=== PATIENT | female | born 1985 | race African-American/Black ===

== ENCOUNTER 2017-07-27 21:29 | Emergency (ER) | payer OTHER ==
[2017-07-27 21:39] VITALS: BP 126/84; PULSE 75; TEMP 98.3; BMI 35.4
--- NOTE | 2017-07-27 22:49 | PDOC ---
History of Present Illness - General Chief Complaint: Chest Pain Stated Complaint: CHEST PAIN Time Seen by Provider: 07/27/17 22:49 Past History - Past Medical History Allergies/Adverse Reactions: Allergies Allergy/AdvReac Type Severity Reaction Status Date / Time No Known Allergies Allergy Verified 07/27/17 21:35 COPD: No - Suicide/Smoking/Psychosocial Hx Smoking History: Never smoked Have you smoked in the past 12 months: No Information on smoking cessation initiated: No Hx Alcohol Use: No Drug/Substance Use Hx: No *Physical Exam - Vital Signs Last Vital Signs Temp Pulse Resp BP Pulse Ox 98.3 F 75 20 126/84 98 07/27/17 21:37 07/27/17 21:37 07/27/17 21:37 07/27/17 21:37 07/27/17 21:37 *DC/Admit/Observation/Transfer - Referrals Referrals: Nghia Melendez MD [Primary Care Provider] - - Patient Instructions - Post Discharge Activity
--- NOTE | 2017-07-28 00:16 | PDOC ---
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 The patient states she has been experiencing a dull, intermittent chest pain with associated dry cough at night for the past few days. She states the chest pain was localized to her left anterior chest until today. She reports the pain is exacerbated with coughing. The patient reports developing a pain to her left posterior shoulder, as she points to the area just over her trapezius region, which radiates into her anterior left chest. She states the pain came on suddenly and was sharp in nature. 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 She denies taking any medication for her pain. She denies cough today. The patient denies shortness of breath, headache and dizziness. The patient denies fever, chills, nausea, vomit, diarrhea and constipation. The patient denies dysuria, frequency, urgency and hematuria. Allergies: seasonal, NKDA Past surgical history: gastric sleeve (2 years ago) Social history: denies toxic habits PCP - Dr. Lizbet West ([place]) (Kavya Mendoza) Past History - Past Medical History COPD: No - Suicide/Smoking/Psychosocial Hx Smoking History: Never smoked Have you smoked in the past 12 months: No Information on smoking cessation initiated: No Hx Alcohol Use: No Drug/Substance Use Hx: No <Susana Arriola - Last Filed: 07/28/17 01:25> <Kavya Mendoza - Last Filed: 07/28/17 01:29> - Past Medical History Allergies/Adverse Reactions: Allergies Allergy/AdvReac Type Severity Reaction Status Date / Time No Known Allergies Allergy Verified 07/27/17 21:35 Home Medications: Ambulatory Orders Cyclobenzaprine HCl [Flexeril 10 mg] 10 mg PO BID PRN #6 tablet 07/28/17 Ibuprofen [Motrin -] 600 mg PO TID PRN #12 tablet 07/28/17 Review of Systems <FlakoSusanachrissie Trimble - Last Filed: 07/28/17 01:25> - Review of Systems Able to Perform ROS?: Yes <Kavya Mendoza - Last Filed: 07/28/17 01:29> - Review of Systems Comments:: 07/28/17 00:22 CONSTITUTIONAL: Absent: fever, chills, diaphoresis, generalized weakness, malaise, loss of appetite HEENT: Absent: rhinorrhea, nasal congestion, throat pain, throat swelling, difficulty swallowing, mouth swelling, ear pain, eye pain, visual Changes CARDIOVASCULAR: (+) left sided chest pain, Absent: syncope, palpitations, irregular heart rate, lightheadedness, peripheral edema RESPIRATORY: Absent: cough, shortness of breath, dyspnea with exertion, orthopnea, wheezing, stridor, hemoptysis GASTROINTESTINAL: Absent: abdominal pain, abdominal distension, nausea, vomiting, diarrhea, constipation, melena, hematochezia GENITOURINARY: Absent: dysuria, frequency, urgency, hesitancy, hematuria, flank pain, genital pain MUSCULOSKELETAL: (+) left posterior shoulder pain radiating to chest. Absent: arthralgia, joint swelling SKIN: Absent: rash, itching, pallor HEMATOLOGIC/IMMUNOLOGIC: Absent: easy bleeding, easy bruising, lymphadenopathy, frequent infections ENDOCRINE: Absent: unexplained weight gain, unexplained weight loss, heat intolerance, cold intolerance NEUROLOGIC: Absent: headache, focal weakness or paresthesias, dizziness, unsteady gait, seizure, mental status changes, bladder or bowel incontinence PSYCHIATRIC: Absent: anxiety, depression, suicidal or homicidal ideation, hallucinations. (Kavya Mendoza) *Physical Exam <FlakoSusanachrissie Trimble - Last Filed: 07/28/17 01:25> <Kavya Mendoza - Last Filed: 07/28/17 01:29> - Vital Signs Last Vital Signs Temp Pulse Resp BP Pulse Ox 98.3 F 75 20 126/84 98 07/27/17 21:37 07/27/17 21:37 07/27/17 21:37 07/27/17 21:37 07/27/17 21:37 - Physical Exam Comments: 07/28/17 00:27 GENERAL: Well developed, well nourished. Awake and alert. No acute distress. HEENT: Normocephalic, atraumatic. PERRLA, EOMI. No conjunctival pallor. Sclera are non- icteric. Moist mucous membranes. Oropharynx is clear. NECK: Supple. Full ROM. No JVD. Carotid pulses 2+ and symmetric, without bruits. No thyromegaly. No lymphadenopathy. CARDIOVASCULAR: Regular rate and rhythm. No murmurs, rubs, or gallops. Distal pulses are 2+ and symmetric. PULMONARY: No evidence of respiratory distress. Lungs clear to auscultation bilaterally. No wheezing, rales or rhonchi. ABDOMINAL: Soft. Non-tender. Non-distended. No rebound or guarding. No organomegaly. Normoactive bowel sounds. MUSCULOSKELETAL (+) tender to palpation over left trapezius muscle. Normal range of motion at all joints. No bony deformities. No CVA tenderness. EXTREMITIES: No cyanosis. No clubbing. No edema. No calf tenderness. SKIN: Warm and dry. Normal capillary refill. No rashes. No jaundice. NEUROLOGICAL: Alert, awake, appropriate. Cranial nerves 2-12 intact. Normoreflexic in the upper and lower extremities. Normal speech. Toes are down-going bilaterally. Gait is normal without ataxia. PSYCHIATRIC: Cooperative. Good eye contact. Appropriate mood and affect. (Kavya Mendoza) Heart Score/ECG Review <Susana Arriola - Last Filed: 07/28/17 01:25> <Kavya Mendoza - Last Filed: 07/28/17 01:29> - ECG Intrepretation Comment:: 07/28/17 22:45 EKG performed at 21:[address] Arriola Impression: Normal sinus rhythm Vent. Rate: 64 bpm TN Interval: 146 ms QTc: 410 ms (Kavya Mendoza) - ADDITIONAL ORDERS Additional order review: Laboratory Results 07/28/17 00:25 Urine HCG, Qual Negative - Medications Given in the ED: ED Medications Discontinued Medications Generic Name Dose Route Start Last Admin Trade Name Freq PRN Reason Stop Dose Admin Ibuprofen 600 mg 07/28/17 00:43 07/28/17 00:53 Motrin - PO 07/28/17 00:44 600 mg ONCE ONE Administration Medical Decision Making <Susana Arriola - Last Filed: 07/28/17 01:25> <Kavya Mendoza - Last Filed: 07/28/17 01:29> - Medical Decision Making 07/28/17 00:40 31 yo female w left sided trapezius muscle pain for 1 week-no shortness of breath,no nausea ,no vomiting,no cough,no fever social history- denies tobacco use,no significant PMH except gastric bypass several years ago ekg nsr,t wave inversion II ,no evidence of acute ischemia (Susana rAriola) *DC/Admit/Observation/Transfer <Susana Arriola - Last Filed: 07/28/17 01:25> <Kavya Mendoza - Last Filed: 07/28/17 01:29> Diagnosis at time of Disposition: Atypical chest pain Trapezius muscle strain Qualifiers: Encounter type: initial encounter Laterality: left Qualified Code(s): S46.812A - Strain of other muscles, fascia and tendons at shoulder and upper arm level, left arm, initial encounter - Discharge Dispostion Disposition: HOME - Prescriptions Prescriptions: Cyclobenzaprine HCl [Flexeril 10 mg] 10 mg PO BID PRN #6 tablet PRN Reason: Muscle Spasms Ibuprofen [Motrin -] 600 mg PO TID PRN #12 tablet PRN Reason: Moderate Pain - Referrals Referrals: Nghia Melendez MD [Primary Care Provider] - - Patient Instructions Printed Discharge Instructions: DI for Atypical Chest Pain Additional Instructions: please hot die picker your medications at your pharmacy Do not drive when taking muscle relaxants ( flexeril) because they cause sedation If you develop any shortness of breath,difficulty breathing or worsening pain, return to the emergency department - Post Discharge Activity Forms/Work/School Notes: Back to Work - Attestations Scribe Attestion: 07/28/17 00:29 Documentation prepared by Kavya Mendoza, acting as medical surgical tech for Susana Arriola MD (Kavya Mendoza)
[2017-07-28] MEDS ORDERED: IBUPROFEN 600 MG TABLET (FP) PO ONE ×2 (00:43→00:52)
--- NOTE | 2017-07-28 08:54 | EKG ---
Test Reason : Blood Pressure : / mmHG Vent. Rate : 064 BPM Atrial Rate : 064 BPM P-R Int : 146 ms QRS Dur : 078 ms QT Int : 398 ms P-R-T Axes : 048 009 020 degrees QTc Int : 410 ms NORMAL SINUS RHYTHM NORMAL ECG NO PREVIOUS ECGS AVAILABLE Confirmed by Isaias Black MD ([id number]) on 07/28/2017 8:53:29 AM Referred By: Confirmed By:Isaias Black MD
== END 2017-07-28 01:29 | disposition home or self-care (01) ==
LOC: JER 21:29
DX: S46.812A Strain of other muscles, fascia and tendons at shoulder and upper arm level, left arm, initial encounter (principal); X50.0XXA Overexertion from strenuous movement or load, initial encounter; X50.3XXA Overexertion from repetitive movements, initial encounter; Y93.89 Activity, other specified; Y92.89 Other specified places as the place of occurrence of the external cause; Y99.0 Civilian activity done for income or pay
CPT/HCPCS: 71046-TC-FY; 84703; 93005; 93010; 99282-25